=== PATIENT | male | born 2000 | race Caucasian/White ===

== ENCOUNTER 2021-06-20 16:44 | Emergency (ER) | payer SELFPAY ==
[2021-06-20 17:41] LABS: EOSINOPHIL 2.5 % (0-5); HCT 47.9 % (42.0-52.0); HGB 16.2 g/dl (13.2-18.0); MCH 28.6 pg (25.0-31.0); MCHC 33.8 g/dL (32.0-36.0); MCV 84.6 fL (78.0-100.0); MONOCYTE 8.1 % (0-12); MPV 11.3 fL (6.0-9.5); NEUTROPHIL 52.3 % (41-80); NRBC 0; PLT 235 K/uL (150-400); RBC 5.66 M/uL (4.70-6.00); RDW 12.2 % (11.5-14.0); WBC 7.2 K/uL (4.0-10.5)
[2021-06-20 17:56] LABS: ALBUMIN 4.3 g/dL (3.4-5.0); BILIRUBIN - TOTAL 0.3 mg/dL (0.2-1.0); BUN/CREAT RATIO (CALC) 12.7 RATIO; CREATININE 1.02 mg/dL (0.67-1.17); GLOBULIN (CALCULATION) 3.5 g/dL; POTASSIUM 4.7 mmol/L (3.5-5.1); TOTAL PROTEIN 7.8 g/dL (6.4-8.2)
[2021-06-20 18:23] LABS: INFLUENZA A NAA NEGATIVE (NEGATIVE)
[2021-06-20 18:28] LABS: CORONAVIRUS 2019 SARS-COV-2 POSITIVE (NEGATIVE)
[2021-06-20] MEDS ORDERED: VENTOLIN HFA IN18 GM INH (20:08)
[2021-06-20] MEDS ORDERED: MEDROL 4MG DOSEP4 MG PO (20:08)
== END 2021-06-20 20:40 | disposition home or self-care (01) ==
LOC: FER 16:44
PROVIDERS: Nurse Practitioner Family
DX: U07.1 COVID-19 (principal); R07.89 Other chest pain; I10 Essential (primary) hypertension; Z79.899 Other long term (current) drug therapy
CPT/HCPCS: 36415; 71045; 80053; 84484; 85025; J1100; U0002